=== PATIENT | male | born 1965 | race Caucasian/White ===

== ENCOUNTER 2016-12-26 04:07 | Day surgery (SDC) | payer BC ==
[2016-12-21 08:39] LABS: HEMATOCRIT 44.2 % (40.0-51.0); HEMOGLOBIN 15.3 g/dL (13.6-17.8)
[2016-12-21 08:45] LABS: BUN (BLOOD UREA NITROGEN) 16 MG/DL (6-23); CALCIUM, SERUM 9.7 MG/DL (8.5-10.4); CHLORIDE, SERUM 104 MMOL/L (96-112); CO2 (CARBON DIOXIDE) 25 MMOL/L (24-34); GFR AFRICAN AMERICAN 119 ML/MIN (>=60); GFR NON AFRICAN AMERICAN 103 ML/MIN (>=60); GLUCOSE, SERUM 213 MG/DL (60-99); POTASSIUM, SERUM 4.7 MMOL/L (3.5-5.3); SODIUM, SERUM 139 MMOL/L (135-148)
--- NOTE | ~2016-12-26 | OP ---
Record Of Operation [facility] [address] [place]. [address] NAME: MIKO SWEENEY : 63 STATUS : REG [facility] PAT#: [id number] AGE: 51 ADM/REG DATE : 12/26/16 MR#: [id number] REPORT SERV DATE: 12/26/16 DICTATED BY: ANDREZ KIMBALL DATE: 12/26/16 REPORT STATUS : Draft TRANSCRIBED BY: MODL DATE: 12/26/16 DATE OF PROCEDURE: 12/26/2016 PREOPERATIVE DIAGNOSIS: Adjacent segment degeneration, spinal stenosis, L3-4. POSTOP DIAGNOSIS: Adjacent segment degeneration, spinal stenosis, L3-4. PROCEDURES: 1. Microscopic and navigation assisted surgery. 2. Left and right L3-4 hemilaminotomy, foraminotomy, partial medial facetectomy. SURGEON: Andrez Kimball D.O. PUGGER HELPER: Joaquin Andrews. ANESTHESIA: General. BLOOD LOSS: 20 mL. INDICATIONS FOR SURGERY: A 51-year-old male, who has had a previous L4-5 lumbar fusion several years ago. He has developed an adjacent segment degeneration with hypertrophy of ligamentum flavum and some facet hypertrophy contributing to spinal stenosis centrally as well as in the lateral recess at L3-4. He does not have a lot of foraminal stenosis and thus does not have to have a significant facetectomy. His symptoms are classic neurogenic claudication, worse standing and walking, better when sitting. The patient has tried conservative care and failed. He is brought to surgery for the above decompression. The patient is aware that with the bilateral partial medial facetectomy, he can develop instability and could require arthrodesis in the future. The risks, benefits, alternatives, and expectations of the procedure were explained. Consent form was signed. DESCRIPTION OF PROCEDURE: Antibiotic prophylaxis was given. Neurophysiology monitoring leads were inserted. The patient was brought to the operative suite. General anesthetic including endotracheal intubation was administered. He was placed prone on a German spine frame. Bony prominences were carefully padded. Thoracolumbar spine was scrubbed with Hibiclens solution. DuraPrep was painted. Sterile drapes were applied. Because of the complexity of surgery and the need to identify correct level of surgery intraoperatively as well as desire to carry out the safest and most precise dissection, I felt that intraoperative navigation was mandatory. A small stab wound was carried out at the right posterior superior iliac spine. A percutaneous pin with navigational frame attached was inserted in the PSIS. Intraoperative CT scan with O-arm was obtained. CT information was used to register the navigational system. With navigational assistance, I identified starting on the right side, the amount of Record Of Operation [facility] [place]. [id number] NAME: MIKO SWEENEY : 63 STATUS : REG [facility]#: [id number] AGE: 51 ADM/REG DATE : 12/26/16 MR#: [id number] REPORT SERV DATE: 12/26/16 DICTATED BY: ANDREZ KIMBALL DATE: 12/26/16 REPORT STATUS : Draft TRANSCRIBED BY: CURRY DATE: 12/26/16 inferior lamina of L3 I needed to remove in order to reach the cephalad boundary of the disk space. I also determined the amount of medial facet I needed to remove in order to reach the lateral aspect of the thecal sac. I used a 3 mm debra bur and used approximately 60% lamina of L3 and approximately 20% of medial facet joint of L3-4. The lateral ligamentum flavum was elevated and removed. This was markedly hypertrophied. The patient was nicely decompressed including the central canal and the lateral recess. There were no disk herniation found. Epidural hemostasis was obtained. The retractor was removed and moved to the left side. I repeated the same identical steps with a hemilaminotomy, foraminotomy, and partial medial facetectomy. Between the two, I was able to completely decompress the lateral recess bilateral as well as the central canal. The fascia openings were closed with single interrupted #1 Vicryl suture. The subcutaneous tissues were closed with 2-0 Vicryl suture, 2-0 vertical mattress nylon suture was used for skin closure. Sterile dressings applied. The patient was awakened, extubated, and taken to recovery room in satisfactory condition, having tolerated the procedure well. SHOSHANA/CURRY Andrez Kimball D.O. / [id number] CC: Gia Ramos II, M.D.
[~2016-12-26 04:07] MED LIST: AMARYL2 PO; ASAB PO; CELEXA20 PO; DIL4TAB PO; GLUCOPHAGE1000 MG PO; GLUCPH8 PO; LEXAPRO10 PO; LOPID6 PO; LORTAB10 PO; MULTIPLE VIT PO; NEUR300 PO; NIACIN TR1000 MG PO; TOUJEO SQ; V5 PO; ZOCOR80 MG PO
== END 2016-12-26 11:28 | disposition home or self-care (01) ==
LOC: SDC 04:07
PROVIDERS: Orthopaedic Surgery Orthopaedic Surgery of the Spine
PROC: 00NY0ZZ Release Lumbar Spinal Cord, Open Approach (ICD-10-PCS; principal; 2016-12-26 05:45)
DX: M48.06 Spinal stenosis, lumbar region (principal); E11.9 Type 2 diabetes mellitus without complications; G47.33 Obstructive sleep apnea (adult) (pediatric); Z99.89 Dependence on other enabling machines and devices; F41.9 Anxiety disorder, unspecified; E66.9 Obesity, unspecified
CPT/HCPCS: 80048; 82962; 85014; 85018; 88304; 88311; 93005; J0690; J1170; J1885; J2250; J2274; J2405; J2710; J3010